=== PATIENT | male | born 1990 | race African-American/Black ===

== ENCOUNTER 2018-01-26 16:49 | Emergency (ER) | payer MEDICAID ==
[2018-01-26] MEDS ORDERED: Lidocaine 2% VISCOUS* 15 ML UDC PO ONE ×2 (18:41→20:32)
[2018-01-26] MEDS ORDERED: Azithromycin TAB* 250 MG PO ONE (19:24)
--- NOTE | 2018-01-26 19:25 | ED ---
Throat Pain/Nasal Congestion - HPI Summary HPI Summary: Complains of sore throat, subjective fever, cold sweats, right ear pain, pain with swallowing, decreased eating 3 days. Able to tolerate saliva and fluids. Denies cough, CP, SOB, N/V/D, abdomen pain, change in urinary BM. Medical history is none. - History of Current Complaint Chief Complaint: EDThroatPain Time Seen by Provider: 01/26/18 17:44 Hx Obtained From: Patient Onset/Duration: Gradual Onset Severity: Moderate Associated Signs And Symptoms: Positive: Negative Cough: None - Allergies/Home Medications Allergies/Adverse Reactions: Allergies Allergy/AdvReac Type Severity Reaction Status Date / Time No Known Allergies Allergy Verified 01/26/18 17:24 PMH/Surg Hx/FS Hx/Imm Hx Endocrine/Hematology History: Denies: Hx Anticoagulant Therapy, Hx Blood Disorders, Hx Blood Transfusions, Hx Bone Marrow Disease, Hx Diabetes, Hx Systemic Lupus Erythematosus, Hx Sickle Cell Disease, Hx Thyroid Disease, Hx Anemia, Hx Unexplained Bleeding, Hx Coagulopothy, Autoimmune Disease, Other Endocrine/Hematological Disorders Cardiovascular History: Denies: Hx Aneurysm, Hx Angina, Hx Angioplasty, Hx Atrial Fibrillation, Hx Auto Implanted Cardiovert Defib, Hx Cardiac Arrest, Hx Cardiomegaly, Hx Congenital Heart Disease, Hx Congestive Heart Failure, Hx Coronary Artery Disease, Hx Deep Vein Thrombosis, Hx Embolism, Hx Hypercholesterolemia, Hx Hypotension, Hx Hypertension, Hx Myocardial Infarction, Hx Pacemaker/ICD, Hx Peripheral Vascular Disease, Hx Rheumatic Fever, Hx Syncope, Hx Valvular Heart Disease, Hx Supraventricular Ventricular Tachycardia, Other Cardiovascular Problems/Disorders Respiratory History: Denies: Hx Asthma, Hx Bronchopulmonary Dysplasia, Hx Chronic Bronchitis, Hx Chronic Obstructive Pulmonary Disease (COPD), Hx Cystic Fibrosis, Hx Lung Cancer , Hx Pleural Effusion, Hx Pneumonia, Hx Pulmonary Edema, Hx Pulmonary Embolism, Hx Seasonal Allergies, Hx Sleep Apnea, Other Respiratory Problems/Disorders GI History: Denies: Hx Cirrhosis, Hx Crohn's Disease, Hx Diverticulosis, Hx Gall Bladder Disease, Hx Gastroesophageal Reflux Disease, Hx Gastrointestinal Bleed, Hx Hiatal Hernia, Hx Irritable Bowel, Hx Jaundice, Hx Obstructive Bowel, Hx Ileostomy, Hx Pyloric Stenosis, Hx Ulcer, Hx Urosepsis, Other GI Disorders Musculoskeletal History: Denies: Hx Arthritis, Hx Rheumatoid Arthritis, Hx Back Problems, Hx Bursitis , Hx Congenital Bone Abnormalities, Hx Fibromyalgia, Hx Gout, Hx Orthopedic Injury, Hx Osteoporosis, Hx Scoliosis, Hx Tendonitis, Hx of Fracture(s), Hx Joint Replacement, Other Musculoskeletal History Sensory History: Denies: Hx Cataracts, Hx Contacts or Glasses, Hx Eye Injury, Hx Eye Prosthesis, Hx Glaucoma, Hx Legally Blind, Hx Macular Degeneration, Hx Vision Problem, Hx Deafness, Hx Hearing Aid, Hx Hearing Problem, Hx Auditory Problems, Other Sensory Impairments Neurological History: Denies: Hx CVA, Hx Dementia, Hx Developmental Delay, Hx Headaches, Hx Migraine, Hx Nerve Disease, Hx Peripheral Neuropathy, Hx Seizures, Hx Spinal Cord Injury, Hx Transient Ischemic Attacks (TIA), Hx CVP, Other Neuro Impairments/Disorders Psychiatric History: Denies: Hx Anxiety, Hx Attention Deficit Hyperactivity Disorder, Hx Autism, Hx Eating Disorder, Hx Oppositional Hancock Disorder, Hx Depression, Hx Panic Disorder, Hx Post Traumatic Stress Disorder, Hx Inpatient Treatment, Hx Community Mental Health Tx, Hx Schizophrenia, Hx Bipolar Disorder, Hx Suicide Attempt, Hx of Violent Episodes Against Others, Hx Substance Abuse, Other Psychiatric Issues/Disorders - Surgical History Hx Anesthesia Reactions: No Infectious Disease History: No Infectious Disease History: Denies: Traveled Outside the [place] in Last 30 Days - Social History Occupation: Employed Full-time Alcohol Use: None Substance Use Type: Reports: None Smoking Status (MU): Light Every Day Tobacco Smoker Review of Systems Positive: Fever, Chills Eyes: Negative Positive: Sore Throat, Ear Ache Cardiovascular: Negative Respiratory: Negative Gastrointestinal: Negative Genitourinary: Negative Musculoskeletal: Negative Skin: Negative Neurological: Negative Psychological: Normal All Other Systems Reviewed And Are Negative: Yes Physical Exam Triage Information Reviewed: Yes Vital Signs On Initial Exam: Initial Vitals Temp Pulse Resp BP Pulse Ox 98.5 F 101 15 116/86 98 01/26/18 17:22 01/26/18 17:22 01/26/18 17:22 01/26/18 17:22 01/26/18 17:22 Vital Signs Reviewed: Yes Appearance: Positive: Well-Appearing Skin: Positive: Warm Head/Face: Positive: Normal Head/Face Inspection Eyes: Positive: Normal ENT: Positive: Pharyngeal erythema, TMs normal, Tonsillar swelling, Uvula midline. Negative: Trismus, Muffled voice, Hoarse voice Neck: Positive: Supple Respiratory/Lung Sounds: Positive: Clear to Auscultation Cardiovascular: Positive: Normal Abdomen Description: Positive: Nontender Musculoskeletal: Positive: Normal Neurological: Positive: Normal Psychiatric: Positive: Normal AVPU Assessment: Alert - Opal Coma Scale Best Eye Response: 4 - Spontaneous Best Motor Response: 6 - Obeys Commands Best Verbal Response: 5 - Oriented Coma Scale Total: 15 Diagnostics - Vital Signs Vital Signs Temp Pulse Resp BP Pulse Ox 01/26/18 17:22 98.5 F 101 15 116/86 98 - Laboratory Lab Results: Lab Results 01/26/18 01/26/18 Range/Units 17:40 17:55 Monoscreen Negative (Negative) Group A Strep Rapid Negative (Negative) Lab Statement: Any lab studies that have been ordered have been reviewed, and results considered in the medical decision making process. EENT Course/Dx - Course Course Of Treatment: Complains of sore throat, subjective fever, cold sweats, right ear pain, pain with swallowing, decreased eating 3 days. Able to tolerate saliva and fluids. Denies cough, CP, SOB, N/V/D, abdomen pain, change in urinary BM. Medical history is none. Vital signs stable and within normal limits. Patient started on azithromycin 500 MG by mouth and viscous lidocaine here in the ED. Rx for same. - Diagnoses Provider Diagnoses: Pharyngitis Discharge - Sign-Out/Discharge Documenting (check all that apply): Discharge/Admit/Transfer - Discharge Plan Condition: Stable Disposition: HOME Prescriptions: Amoxicillin/Clavulanate TAB* [Augmentin TAB 875*] 875 mg PO BID #20 tab Lidocaine 2% VISCOUS* [Xylocaine 2% Viscous*] 15 ml SWISH SPIT Q6H PRN #1 btl PRN Reason: Pain Patient Education Materials: Pharyngitis (ED) Forms: *Work Release Referrals: No Primary Care Phys,NOPCP [Primary Care Provider] - Additional Instructions: Take antibiotics as directed. Follow-up with primary care. Return to ED for any worsening symptoms - Billing Disposition and Condition Condition: STABLE Disposition: Home
[2018-01-26] MEDS ORDERED: Lidocaine 2% VISCOUS* 15 ML UDC ONE (20:33)
[2018-01-26 20:46] VITALS: BP 147/92
== END 2018-01-26 20:45 | disposition home or self-care (01) ==
LOC: ED 16:49
DX: J02.9 Acute pharyngitis, unspecified (principal); R50.9 Fever, unspecified; H92.01 Otalgia, right ear; F17.200 Nicotine dependence, unspecified, uncomplicated
CPT/HCPCS: 36415; 86308; 86703; 87651; 99282; A9270-GY